=== PATIENT | female | born 1980 | race Caucasian/White ===

== ENCOUNTER 2020-06-27 06:09 | Emergency (ER) | payer OTHER ==
[~2020-06-27 06:09] MED LIST: BENADRYL25 MG PO; CEFUROXIME500 MG PO; CIPRO500 MG PO; DIFLUCAN150 MG PO; PREDNISONE 50 M50 MG PO; PYRIDIUM100 MG PO; PYRIDIUM200 MG PO
[2020-06-27 06:55] LABS: HEMOGLOBIN 14.2 gm/dl (12.3-15.3); RED BLOOD COUNT 4.58 M/UL (4.00-5.10)
[2020-06-27 07:13] LABS: BUN/CREATININE RATIO 13 (0-10)
[2020-06-27] MEDS ORDERED: OMNICEF 300 MG300 MG PO (08:11)
[2020-06-27] MEDS ORDERED: PYRIDIUM200 MG PO (08:11)
== END 2020-06-27 08:55 | disposition home or self-care (01) ==
LOC: ER1 06:09
PROVIDERS: Emergency Medicine
DX: N30.90 Cystitis, unspecified without hematuria (principal); F17.200 Nicotine dependence, unspecified, uncomplicated
CPT/HCPCS: 36415; 80053; 81001; 82150; 83690; 84703; 85025; 96374; 99284; J0696

== ENCOUNTER 2021-01-29 09:44 | Emergency (ER) | payer OTHER ==
[~2021-01-29 09:44] MED LIST changes: +OMNICEF 300 MG300 MG PO
[2021-01-29 10:27] LABS: HEMOGLOBIN 15.5 gm/dl (12.3-15.3); RED BLOOD COUNT 5.22 M/UL (4.00-5.10); WHITE BLOOD COUNT 7.1 K/UL (4.5-11.0)
[2021-01-29 10:44] LABS: BUN/CREATININE RATIO 14 (0-10)
[2021-01-29] MEDS ORDERED: OMNICEF 300 MG300 MG PO (11:11)
== END 2021-01-29 11:25 | disposition home or self-care (01) ==
LOC: ER1 09:44
PROVIDERS: Physician Assistant
DX: N39.0 Urinary tract infection, site not specified (principal); F17.200 Nicotine dependence, unspecified, uncomplicated; Z90.49 Acquired absence of other specified parts of digestive tract
CPT/HCPCS: 80053; 81001; 85025; 87077; 87086; 87186; 99284

== ENCOUNTER → 2021-03-02 | Outpatient (CLI) | payer OTHER | LOC: EXRD 15:29 | DX: N39.0 Urinary tract infection, site not specified (principal); R31.9 Hematuria, unspecified | CPT/HCPCS: 76775 ==

== ENCOUNTER 2022-01-15 08:11 | Emergency (ER) | payer OTHER ==
[~2022-01-15 08:11] MED LIST changes: +ONDANSETRON ODT4 MG SL; +TORADOL 10 MG T10 MG PO
[2022-01-15 09:10] LABS: HEMOGLOBIN 13.9 gm/dl (12.3-15.3); RED BLOOD COUNT 4.51 M/UL (4.00-5.10); WHITE BLOOD COUNT 3.7 K/UL (4.5-11.0)
[2022-01-15 09:30] LABS: BUN/CREATININE RATIO 11 (0-10)
[2022-01-17 07:10] LABS: CHLAMYDIA TRACHOMATIS, NAA Negative (Negative); NEISSERIA GONORRHOEAE, NAA Negative (Negative)
== END 2022-01-15 11:23 | disposition home or self-care (01) ==
LOC: ER1 08:11
PROVIDERS: Physician Assistant
DX: U07.1 COVID-19 (principal); R10.30 Lower abdominal pain, unspecified; R10.817 Generalized abdominal tenderness; M54.6 Pain in thoracic spine; M54.50 Low back pain, unspecified; F17.210 Nicotine dependence, cigarettes, uncomplicated; Z90.49 Acquired absence of other specified parts of digestive tract; Z90.710 Acquired absence of both cervix and uterus
CPT/HCPCS: 80053; 81001; 83605; 85025; 87040; 87086; 96374; 96375; 99284; J2270; J2405; Q9967; U0002